=== PATIENT | male | born 1985 | race Two or more races ===

== ENCOUNTER 2017-09-10 16:09 | Emergency (ER) | payer MEDICAID ==
[~2017-09-10] VITALS: Ht 162.6 cm; Wt 59.0 kg
[2017-09-10 16:31] VITALS: BP 128/89
== END 2017-09-10 16:55 | disposition left against medical advice (07) ==
LOC: EDBD 16:09 → ER 16:19
DX: R04.0 Epistaxis (principal); Z53.21 Procedure and treatment not carried out due to patient leaving prior to being seen by health care provider

== ENCOUNTER 2017-11-02 15:52 | Emergency (ER) | payer MEDICAID ==
[~2017-11-02] VITALS: Ht 175.3 cm; Wt 81.6 kg
[2017-11-02] MEDS ORDERED: SODIUM CHLORIDE 0.9% 1,000 ML IV ONE (16:03)
[2017-11-02 20:00] VITALS: BP 133/87
== END 2017-11-02 20:06 | disposition home or self-care (01) ==
LOC: ER 15:52 → EDBD 15:52 → ER 20:06
DX: S09.90XA Unspecified injury of head, initial encounter (principal); F10.129 Alcohol abuse with intoxication, unspecified; Z87.442 Personal history of urinary calculi
CPT/HCPCS: 36415; 70450; 80320; 94761

== ENCOUNTER 2017-11-21 19:30 | Emergency (ER) | payer MEDICAID ==
[~2017-11-21] VITALS: Ht 175.3 cm; Wt 68.0 kg
[2017-11-22 00:02] VITALS: BP 141/94
== END 2017-11-22 06:03 | disposition left against medical advice (07) ==
LOC: ER 19:30 → EDBD 19:30 → ER 11-22 06:03
DX: R56.9 Unspecified convulsions (principal); Z53.21 Procedure and treatment not carried out due to patient leaving prior to being seen by health care provider

== ENCOUNTER 2017-12-16 17:18 | Emergency (ER) | payer MEDICAID ==
[~2017-12-16] VITALS: Ht 170.2 cm; Wt 65.8 kg
[2017-12-16 17:45] VITALS: BP 137/88
== END 2017-12-16 22:00 | disposition left against medical advice (07) ==
LOC: ER 17:18 → EDBD 17:18 → ER 22:00
DX: F10.129 Alcohol abuse with intoxication, unspecified (principal); Z53.21 Procedure and treatment not carried out due to patient leaving prior to being seen by health care provider

== ENCOUNTER 2017-12-20 22:02 | Emergency (ER) | payer MEDICAID ==
[~2017-12-20] VITALS: Ht 162.6 cm; Wt 72.6 kg
[2017-12-20 22:27] VITALS: BP 141/71
[2017-12-21] MEDS ORDERED: FLUCONAZOLE 100 MG TAB PO ONE (03:30)
[2017-12-21] MEDS ORDERED: cefTRIAXone SOD 1,000 MG VL IM ONE (03:30)
== END 2017-12-21 04:20 | disposition home or self-care (01) ==
LOC: ER 22:02
DX: H66.92 Otitis media, unspecified, left ear (principal); Z87.891 Personal history of nicotine dependence; Z87.442 Personal history of urinary calculi
CPT/HCPCS: 96372; 99283; J0696

== ENCOUNTER 2018-01-21 18:54 | Emergency (ER) | payer MEDICAID ==
[~2018-01-21] VITALS: Ht 160 cm; Wt 63.5 kg
[2018-01-21] MEDS ORDERED: SODIUM CHLORIDE 0.9% 1,000 ML IVB ONE (19:02)
[2018-01-21 19:41] LABS: Basophils # (auto) 0.1 uL; Eosinophils # (auto) 0.1 uL; Hematocrit 38.8 % (41.0-53.0); Hemoglobin 12.9 g/dL (13.5-17.5); Lymphocytes # (auto) 1.7 uL; Lymphocytes % (auto) 23.8 % (10.0-50.0); Mean Corpuscular Hemoglobin 32.9 pg (28.0-32.0); Mean Corpuscular Hgb Conc. 33.1 g/dL (32.0-36.0); Mean Corpuscular Volume 99.2 fL (80.0-100.0); Monocytes # (auto) 0.7 uL; Monocytes % (auto) 10.1 % (0.0-12.0); Neutrophils # (auto) 4.6 uL; Neutrophils % (auto) 64.1 % (37.0-80.0); Nucleated Red Blood Cells % 0.1 %; Platelet Count (auto) 380 10^3/uL (140-450); Red Blood Cells 3.91 10^6/uL (4.5-5.90); Red Cell Distribution Width 14.6 % (11.8-14.3); White Blood Cell 7.2 10^3/uL (4.4-10.8)
[2018-01-21 19:58] LABS: BUN/Creatinine Ratio 6.8; Calcium 8.3 mg/dL (8.5-10.1); Magnesium 2.3 mg/dL (1.6-2.6); Potassium 3.9 mmol/L (3.5-5.1)
[2018-01-21 20:05] LABS: Bilirubin, Total 0.2 mg/dL (0.2-1.0); Total Protein 8.6 g/dL (6.4-8.2)
[2018-01-21 22:00] VITALS: BP 154/87
== END 2018-01-22 00:06 | disposition home or self-care (01) ==
LOC: EDUNIT# 18:54 → ER 18:54 → EDBD 18:54 → ER 01-22 00:06
DX: F10.129 Alcohol abuse with intoxication, unspecified (principal); M79.641 Pain in right hand; Z87.442 Personal history of urinary calculi; Z87.891 Personal history of nicotine dependence; Y90.8 Blood alcohol level of 240 mg/100 ml or more
CPT/HCPCS: 36415; 73130; 80053; 80320; 83735; 85025; 94761; 96360; 99285; J7030

== ENCOUNTER 2018-02-04 06:15 | Emergency (ER) | payer MEDICAID ==
[~2018-02-04] VITALS: Ht 162.6 cm; Wt 68.0 kg
[2018-02-04 07:24] LABS: Basophils # (auto) 0 uL; Basophils % (auto) 0.8 % (0.0-2.0); Eosinophils # (auto) 0.1 uL; Eosinophils % (auto) 1.3 % (0.0-7.0); Hematocrit 41.3 % (41.0-53.0); Hemoglobin 13.7 g/dL (13.5-17.5); Lymphocytes # (auto) 1.5 uL; Lymphocytes % (auto) 27.1 % (10.0-50.0); Mean Corpuscular Hemoglobin 32.4 pg (28.0-32.0); Mean Corpuscular Hgb Conc. 33.2 g/dL (32.0-36.0); Mean Corpuscular Volume 97.6 fL (80.0-100.0); Monocytes # (auto) 0.4 uL; Neutrophils # (auto) 3.6 uL; Neutrophils % (auto) 63.8 % (37.0-80.0); Nucleated Red Blood Cells % 0.1 %; Platelet Count (auto) 183 10^3/uL (140-450); Red Blood Cells 4.23 10^6/uL (4.5-5.90); White Blood Cell 5.7 10^3/uL (4.4-10.8)
[2018-02-04 07:42] LABS: Albumin 4.3 g/dL (3.4-5.0); BUN/Creatinine Ratio 9.3; Bilirubin, Total 0.1 mg/dL (0.2-1.0); Calcium 8.4 mg/dL (8.5-10.1); Potassium 3.8 mmol/L (3.5-5.1); Total Protein 9.1 g/dL (6.4-8.2)
[2018-02-04] MEDS ORDERED: LORazepam 2MG/ML-1ML VIAL ONE (08:11)
[2018-02-04] MEDS ORDERED: LORazepam 2MG/ML-1ML VIAL IV ONE (08:15)
[2018-02-04] MEDS ORDERED: SODIUM CHLORIDE 0.9% 1,000 ML IV ONE (08:15)
[2018-02-04 10:31] LABS: Urine WBC None Seen /hpf (0 - 3)
[2018-02-04 10:39] LABS: Urine Bacteria NONE SEEN /hpf (None Seen); Urine Blood Negative /uL (Negative); Urine Hyaline Cast FEW /lpf (0 - 2); Urine Specific Gravity 1.008 (1.001-1.035)
[2018-02-04 11:08] LABS: Amphetamine Screen, Urine NEGATIVE (NEGATIVE); Barbiturate Scree,Urine NEGATIVE (NEGATIVE); Benzodiazephine Screen, Urine POSITIVE (NEGATIVE); Cannabinoid Screen, Urine NEGATIVE (NEGATIVE); Cocaine Screen, Urine NEGATIVE (NEGATIVE); Opiate Scree,Urine NEGATIVE (NEGATIVE); Phencyclidine Screen, Urine NEGATIVE (NEGATIVE)
[2018-02-04 12:38] VITALS: BP 108/76
== END 2018-02-04 14:06 | disposition home or self-care (01) ==
LOC: EDBD 06:15 → ER 06:18
DX: F10.129 Alcohol abuse with intoxication, unspecified (principal); Z87.442 Personal history of urinary calculi
CPT/HCPCS: 36415; 70450; 80053; 80307; 80320; 81001; 85025; 94761; 96361; 96374; 99285; J2060

== ENCOUNTER 2018-02-14 23:02 | Emergency (ER) | payer MEDICAID ==
[~2018-02-14] VITALS: Ht 162.6 cm; Wt 79.8 kg
[2018-02-14 23:08] VITALS: BP 159/84
[2018-02-14] MEDS ORDERED: THIAMINE INJ 100 MG, MULTIPLE VITAMIN 10 ML, FOLIC ACID 1 MG, MAGNESIUM SULF SDV 50% 8 ... IV STA ×5 (23:32)
[2018-02-14 23:40] LABS: Basophils # (auto) 0 uL; Basophils % (auto) 1.1 % (0.0-2.0); Eosinophils # (auto) 0.1 uL; Eosinophils % (auto) 1.6 % (0.0-7.0); Hematocrit 42.5 % (41.0-53.0); Lymphocytes # (auto) 1.5 uL; Lymphocytes % (auto) 39.7 % (10.0-50.0); Mean Corpuscular Hemoglobin 31.9 pg (28.0-32.0); Mean Corpuscular Volume 96.8 fL (80.0-100.0); Monocytes # (auto) 0.3 uL; Monocytes % (auto) 7.6 % (0.0-12.0); Neutrophils # (auto) 1.9 uL; Nucleated Red Blood Cells % 0.1 %; Platelet Count (auto) 189 10^3/uL (140-450); Red Blood Cells 4.39 10^6/uL (4.5-5.90); Red Cell Distribution Width 14.8 % (11.8-14.3); White Blood Cell 3.8 10^3/uL (4.4-10.8)
[2018-02-14 23:55] LABS: INR 0.9 (0.9-1.15); Partial Thromboplastin Time 27.6 sec (22.64-33.71); Prothrombin Time 9.8 sec (9.37-12.3)
[2018-02-14 23:56] LABS: Albumin 4.3 g/dL (3.4-5.0); BUN/Creatinine Ratio 12.3; Calcium 8.9 mg/dL (8.5-10.1); Potassium 4.1 mmol/L (3.5-5.1)
[2018-02-14 23:59] LABS: Bilirubin, Total 0.2 mg/dL (0.2-1.0)
== END 2018-02-15 00:30 | disposition left against medical advice (07) ==
LOC: EDBD 23:02 → ER 23:02
DX: R10.12 Left upper quadrant pain (principal); Z53.21 Procedure and treatment not carried out due to patient leaving prior to being seen by health care provider
CPT/HCPCS: 36415; 71045; 74176; 80053; 80320; 82150; 83690; 85025; 85610; 85730

== ENCOUNTER 2018-02-15 01:50 | Emergency (ER) | payer MEDICAID ==
[~2018-02-15] VITALS: Ht 175.3 cm; Wt 83.9 kg
[2018-02-15] MEDS ORDERED: SODIUM CHLORIDE 0.9% 1,000 ML IVB ONE (02:04)
[2018-02-15 02:39] LABS: Basophils # (auto) 0 uL; Basophils % (auto) 1.1 % (0.0-2.0); Eosinophils # (auto) 0 uL; Eosinophils % (auto) 0.9 % (0.0-7.0); Hematocrit 41.7 % (41.0-53.0); Lymphocytes # (auto) 2.3 uL; Lymphocytes % (auto) 50.7 % (10.0-50.0); Mean Corpuscular Hemoglobin 32.6 pg (28.0-32.0); Mean Corpuscular Hgb Conc. 33.7 g/dL (32.0-36.0); Mean Corpuscular Volume 96.8 fL (80.0-100.0); Monocytes # (auto) 0.4 uL; Monocytes % (auto) 8.5 % (0.0-12.0); Neutrophils # (auto) 1.8 uL; Neutrophils % (auto) 38.8 % (37.0-80.0); Nucleated Red Blood Cells % 0.1 %; Platelet Count (auto) 184 10^3/uL (140-450); Red Blood Cells 4.31 10^6/uL (4.5-5.90); Red Cell Distribution Width 14.9 % (11.8-14.3); White Blood Cell 4.6 10^3/uL (4.4-10.8)
[2018-02-15 02:55] LABS: Albumin 3.6 g/dL (3.4-5.0); Calcium 7.9 mg/dL (8.5-10.1); Magnesium 1.9 mg/dL (1.6-2.6); Potassium 3.6 mmol/L (3.5-5.1)
[2018-02-15 02:57] LABS: Acetaminophen < 2.0 ug/mL (10-30); Salicylate 1.8 mg/dL (2.8-20.0)
[2018-02-15 02:59] LABS: Bilirubin, Total 0.2 mg/dL (0.2-1.0); Total Protein 7.7 g/dL (6.4-8.2)
[2018-02-15 03:20] LABS: Urine Bacteria NONE SEEN /hpf (None Seen); Urine Blood Negative /uL (Negative); Urine Hyaline Cast FEW /lpf (0 - 2); Urine Specific Gravity 1.007 (1.001-1.035); Urine WBC 2 /hpf (0 - 3)
[2018-02-15 03:34] LABS: Amphetamine Screen, Urine NEGATIVE (NEGATIVE); Barbiturate Scree,Urine NEGATIVE (NEGATIVE); Benzodiazephine Screen, Urine POSITIVE (NEGATIVE); Cannabinoid Screen, Urine NEGATIVE (NEGATIVE); Opiate Scree,Urine NEGATIVE (NEGATIVE); Phencyclidine Screen, Urine NEGATIVE (NEGATIVE)
[2018-02-15 03:43] LABS: Cocaine Screen, Urine NEGATIVE (NEGATIVE)
[2018-02-15 09:47] VITALS: BP 102/63
[2018-02-15] MEDS ORDERED: THIAMINE INJ 100 MG, MULTIPLE VITAMIN 10 ML, FOLIC ACID 1 MG, MAGNESIUM SULF SDV 50% 8 ... IV SCH ×5 (12:00)
== END 2018-02-15 05:35 | disposition home or self-care (01) ==
LOC: ER 01:50
DX: F10.129 Alcohol abuse with intoxication, unspecified (principal); G92 Toxic encephalopathy; R41.82 Altered mental status, unspecified; F41.9 Anxiety disorder, unspecified; Z87.891 Personal history of nicotine dependence; Z87.442 Personal history of urinary calculi
CPT/HCPCS: 36415; 70450; 80053; 80307; 80320; 80329; 81001; 83735; 85025; 96361; 96365; 96366; 99285; J3411; J3475; J7030

== ENCOUNTER 2018-04-21 13:31 | Emergency (ER) | payer MEDICAID ==
[~2018-04-21] VITALS: Ht 167.6 cm; Wt 77.1 kg
[2018-04-21 14:43] LABS: Basophils # (auto) 0 uL; Basophils % (auto) 0.9 % (0.0-2.0); Eosinophils # (auto) 0 uL; Eosinophils % (auto) 0.4 % (0.0-7.0); Hematocrit 38.2 % (41.0-53.0); Hemoglobin 12.8 g/dL (13.5-17.5); Lymphocytes # (auto) 0.5 uL; Lymphocytes % (auto) 9.7 % (10.0-50.0); Mean Corpuscular Hemoglobin 32.2 pg (28.0-32.0); Mean Corpuscular Hgb Conc. 33.4 g/dL (32.0-36.0); Mean Corpuscular Volume 96.3 fL (80.0-100.0); Monocytes # (auto) 0.4 uL; Monocytes % (auto) 9.5 % (0.0-12.0); Neutrophils # (auto) 3.7 uL; Neutrophils % (auto) 79.5 % (37.0-80.0); Platelet Count (auto) 68 10^3/uL (140-450); Red Blood Cells 3.97 10^6/uL (4.5-5.90); Red Cell Distribution Width 16.2 % (11.8-14.3); White Blood Cell 4.7 10^3/uL (4.4-10.8)
[2018-04-21 14:59] LABS: Alanine Aminotransferase 51 U/L (16-61); Albumin 3.9 g/dL (3.4-5.0); Anion Gap 11 (5-15); Aspartate Aminotransferase 67 U/L (15-37); BUN/Creatinine Ratio 6.3; Blood Alcohol < 3.0 mg/dL (0-5); Blood Urea Nitrogen 4 mg/dL (7-18); Calcium 9.6 mg/dL (8.5-10.1); Carbon Dioxide 26 mmol/L (21-32); Chloride 100 mmol/L (98-107); GFR African American 189 mL/min; GFR Non-African American 156 mL/min; Glucose 142 mg/dL (74-106); Potassium 3.6 mmol/L (3.5-5.1); Sodium 137 mmol/L (136-145)
[2018-04-21 15:02] LABS: Alkaline Phosphatase 175 U/L (45-117); Bilirubin, Total 0.7 mg/dL (0.2-1.0); Total Protein 8.7 g/dL (6.4-8.2)
[2018-04-21] MEDS ORDERED: SODIUM CHLORIDE 0.9% 1,000 ML IVB ONE (15:46)
[2018-04-21] MEDS ORDERED: PHENYTOIN IV DILANTIN 1,000 MG in SODIUM CHL 0.9% 250 ML IV ONE (16:00)
[2018-04-21] MEDS ORDERED: LORazepam 2MG/ML-1ML VIAL IV ONE (16:15)
[2018-04-21] MEDS ORDERED: MVI in SODIUM CHLORIDE 0.9% 1,010 ML ONE (16:47)
[2018-04-21] MEDS ORDERED: THIAMINE 100mg/ml INJ (200mg/2ml VIAL) ONE (16:47)
[2018-04-21 16:56] LABS: INR 0.87 (0.9-1.15); Prothrombin Time 9.4 sec (9.27-12.13)
[2018-04-21 18:46] LABS: Alcohol, Urine < 3.0 mg/dL (0-5); Amphetamine Screen, Urine NEGATIVE (NEGATIVE); Barbiturate Scree,Urine NEGATIVE (NEGATIVE); Benzodiazephine Screen, Urine NEGATIVE (NEGATIVE); Cannabinoid Screen, Urine NEGATIVE (NEGATIVE); Cocaine Screen, Urine NEGATIVE (NEGATIVE); Opiate Scree,Urine NEGATIVE (NEGATIVE); Phencyclidine Screen, Urine NEGATIVE (NEGATIVE)
[2018-04-21 19:25] LABS: Urine Bacteria NONE SEEN /hpf (None Seen); Urine Blood Negative /uL (Negative); Urine Mucus FEW (None Seen); Urine Specific Gravity 1.011 (1.001-1.035); Urine WBC <1 /hpf (0 - 3)
[2018-04-21 20:15] VITALS: BP 130/82
[2018-04-22] MEDS ORDERED: THIAMINE INJ 100 MG, MULTIPLE VITAMIN 10 ML, FOLIC ACID 1 MG, MAGNESIUM SULF SDV 50% 8 ... IV SCH ×5 (12:00)
== END 2018-04-21 20:16 | disposition home or self-care (01) ==
LOC: EDBD 13:31 → ER 13:34
DX: G40.909 Epilepsy, unspecified, not intractable, without status epilepticus (principal); F10.10 Alcohol abuse, uncomplicated; R41.82 Altered mental status, unspecified; R42 Dizziness and giddiness
CPT/HCPCS: 36415; 70450; 71045; 80053; 80307; 80320; 81001; 83735; 85025; 85610; 85730; 93005; 94761; 96365; 96368; 99285; J1165; J2060; J3411; J3475; J7030; J7050

== ENCOUNTER 2018-05-08 20:57 | Emergency (ER) | payer MEDICAID ==
[~2018-05-08] VITALS: Ht 177.8 cm; Wt 86.2 kg
[2018-05-08 21:08] VITALS: BP 132/82
[2018-05-09] MEDS ORDERED: THIAMINE INJ 100 MG, MULTIPLE VITAMIN 10 ML, FOLIC ACID 1 MG, MAGNESIUM SULF SDV 50% 8 ... IV SCH ×5 (12:00)
== END 2018-05-08 23:49 | disposition left against medical advice (07) ==
LOC: EDBD 20:57 → ER 21:00
DX: R07.9 Chest pain, unspecified (principal); Z53.21 Procedure and treatment not carried out due to patient leaving prior to being seen by health care provider

== ENCOUNTER 2018-07-12 22:49 | Emergency (ER) | payer MEDICAID ==
[~2018-07-12] VITALS: Ht 162.6 cm; Wt 59.0 kg
[2018-07-12 23:00] VITALS: BP 140/98
== END 2018-07-13 09:24 | disposition home or self-care (01) ==
LOC: EDBD 22:49 → ER 22:58
DX: F10.10 Alcohol abuse, uncomplicated (principal); Z87.891 Personal history of nicotine dependence; Z53.29 Procedure and treatment not carried out because of patient's decision for other reasons

== ENCOUNTER 2018-09-06 16:46 | Emergency (ER) | payer MEDICAID ==
[~2018-09-06] VITALS: Ht 165.1 cm; Wt 68.0 kg
[2018-09-06] MEDS ORDERED: SODIUM CHLORIDE 0.9% 1,000 ML IVB ONE (16:51)
[2018-09-06] MEDS ORDERED: LORazepam 2MG/ML-1ML VIAL IV ONE (17:00)
[2018-09-06 17:20] VITALS: BP 150/80
[2018-09-06 18:01] LABS: Basophils # (auto) 0 uL; Eosinophils # (auto) 0 uL; Eosinophils % (auto) 0.3 % (0.0-7.0); Hematocrit 38.3 % (41.0-53.0); Hemoglobin 12.4 g/dL (13.5-17.5); Lymphocytes # (auto) 1.2 uL; Lymphocytes % (auto) 28.2 % (10.0-50.0); Mean Corpuscular Hemoglobin 31.3 pg (28.0-32.0); Mean Corpuscular Hgb Conc. 32.3 g/dL (32.0-36.0); Mean Corpuscular Volume 96.8 fL (80.0-100.0); Monocytes # (auto) 0.3 uL; Monocytes % (auto) 7.7 % (0.0-12.0); Neutrophils # (auto) 2.6 uL; Neutrophils % (auto) 62.8 % (37.0-80.0); Platelet Count (auto) 105 10^3/uL (140-450); Red Blood Cells 3.96 10^6/uL (4.5-5.90); Red Cell Distribution Width 16.7 % (11.8-14.3); White Blood Cell 4.1 10^3/uL (4.4-10.8)
[2018-09-06 18:29] LABS: Alanine Aminotransferase 28 U/L (16-61); Albumin 3.7 g/dL (3.4-5.0); Anion Gap 21 (5-15); Aspartate Aminotransferase 51 U/L (15-37); BUN/Creatinine Ratio 4.9; Blood Urea Nitrogen 4 mg/dL (7-18); Calcium 8.2 mg/dL (8.5-10.1); Carbon Dioxide 17 mmol/L (21-32); Chloride 103 mmol/L (98-107); GFR African American 143 mL/min; GFR Non-African American 118 mL/min; Glucose 88 mg/dL (74-106); Potassium 3.4 mmol/L (3.5-5.1); Sodium 141 mmol/L (136-145)
[2018-09-06 18:31] LABS: Alkaline Phosphatase 158 U/L (45-117); Bilirubin, Total 0.4 mg/dL (0.2-1.0); Total Protein 8.5 g/dL (6.4-8.2)
== END 2018-09-06 18:52 | disposition home or self-care (01) ==
LOC: EDBD 16:46 → ER 16:46 → EDUNIT# 16:46 → ER 18:52
DX: F10.120 Alcohol abuse with intoxication, uncomplicated (principal); F15.10 Other stimulant abuse, uncomplicated
CPT/HCPCS: 36415; 80053; 80320; 85025; 94761; 96374; 99284; J2060; J7030

== ENCOUNTER 2018-09-20 11:01 | Emergency (ER) | payer MEDICAID ==
[~2018-09-20] VITALS: Ht 167.6 cm; Wt 81.6 kg
[2018-09-20] MEDS ORDERED: LORazepam 2MG/ML-1ML VIAL IV ONE (11:45)
[2018-09-20 12:05] LABS: Basophils # (auto) 0.1 uL; Basophils % (auto) 1.2 % (0.0-2.0); Eosinophils # (auto) 0 uL; Eosinophils % (auto) 0.4 % (0.0-7.0); Hematocrit 39.6 % (41.0-53.0); Hemoglobin 13.1 g/dL (13.5-17.5); Lymphocytes # (auto) 0.7 uL; Lymphocytes % (auto) 14.3 % (10.0-50.0); Mean Corpuscular Hemoglobin 31.2 pg (28.0-32.0); Mean Corpuscular Hgb Conc. 33.1 g/dL (32.0-36.0); Mean Corpuscular Volume 94.2 fL (80.0-100.0); Monocytes # (auto) 0.3 uL; Monocytes % (auto) 5.4 % (0.0-12.0); Neutrophils # (auto) 3.9 uL; Neutrophils % (auto) 78.7 % (37.0-80.0); Platelet Count (auto) 155 10^3/uL (140-450); Red Blood Cells 4.21 10^6/uL (4.5-5.90); Red Cell Distribution Width 17.3 % (11.8-14.3); White Blood Cell 4.9 10^3/uL (4.4-10.8)
[2018-09-20 12:25] LABS: Albumin 4.1 g/dL (3.4-5.0); Anion Gap 11 (5-15); Blood Urea Nitrogen 6 mg/dL (7-18); Calcium 9.4 mg/dL (8.5-10.1); Carbon Dioxide 26 mmol/L (21-32); Chloride 101 mmol/L (98-107); Glucose 135 mg/dL (74-106); Potassium 4.1 mmol/L (3.5-5.1); Sodium 138 mmol/L (136-145)
[2018-09-20 12:30] LABS: Alanine Aminotransferase 35 U/L (16-61); Alkaline Phosphatase 140 U/L (45-117); Aspartate Aminotransferase 64 U/L (15-37); BUN/Creatinine Ratio 8.1; Bilirubin, Total 0.8 mg/dL (0.2-1.0); Blood Alcohol < 3.0 mg/dL (0-5); GFR African American 159 mL/min; GFR Non-African American 131 mL/min; Total Protein 8.7 g/dL (6.4-8.2)
[2018-09-20] MEDS ORDERED: THIAMINE INJ 100 MG, MULTIPLE VITAMIN 10 ML, FOLIC ACID 1 MG, MAGNESIUM SULF SDV 50% 8 ... IV ONE ×5 (12:30)
[2018-09-20 15:49] VITALS: BP 167/67
== END 2018-09-20 15:49 | disposition home or self-care (01) ==
LOC: EDBD 11:01 → ER 11:01
DX: F10.239 Alcohol dependence with withdrawal, unspecified (principal); F15.10 Other stimulant abuse, uncomplicated; Z87.891 Personal history of nicotine dependence
CPT/HCPCS: 36415; 80053; 80320; 85025; 94761; 96365; 96366; 96375; 99284; J2060; J3411; J3475; J7030

== ENCOUNTER 2019-02-24 21:42 | Emergency (ER) | payer MEDICAID ==
[~2019-02-24] VITALS: Ht 162.6 cm; Wt 63.5 kg
[2019-02-24 23:10] LABS: Urine WBC None Seen /hpf (0 - 3)
[2019-02-24 23:32] LABS: Amphetamine Screen, Urine NEGATIVE (NEGATIVE); Barbiturate Scree,Urine NEGATIVE (NEGATIVE); Cannabinoid Screen, Urine NEGATIVE (NEGATIVE); Cocaine Screen, Urine NEGATIVE (NEGATIVE); Opiate Scree,Urine NEGATIVE (NEGATIVE); Phencyclidine Screen, Urine NEGATIVE (NEGATIVE)
[2019-02-24 23:41] LABS: Benzodiazephine Screen, Urine NEGATIVE (NEGATIVE); Urine Bacteria NONE SEEN /hpf (None Seen); Urine Blood Negative /uL (Negative); Urine Specific Gravity 1.003 (1.001-1.035)
[2019-02-25 02:32] LABS: Basophils # (auto) 0.1 uL; Basophils % (auto) 1.5 % (0.0-2.0); Eosinophils # (auto) 0.1 uL; Eosinophils % (auto) 1.1 % (0.0-7.0); Hematocrit 38.9 % (41.0-53.0); Hemoglobin 13.4 g/dL (13.5-17.5); Lymphocytes # (auto) 1.6 uL; Lymphocytes % (auto) 34.3 % (10.0-50.0); Mean Corpuscular Hgb Conc. 34.3 g/dL (32.0-36.0); Mean Corpuscular Volume 96.1 fL (80.0-100.0); Monocytes # (auto) 0.4 uL; Monocytes % (auto) 9.5 % (0.0-12.0); Neutrophils # (auto) 2.5 uL; Neutrophils % (auto) 53.6 % (37.0-80.0); Platelet Count (auto) 161 10^3/uL (140-450); Red Blood Cells 4.05 10^6/uL (4.5-5.90); Red Cell Distribution Width 17.1 % (11.8-14.3); White Blood Cell 4.6 10^3/uL (4.4-10.8)
[2019-02-25 02:44] LABS: INR 0.87 (0.9-1.15); Prothrombin Time 9.4 sec (9.27-12.13)
[2019-02-25] MEDS ORDERED: KETOROLAC TROMETH 60MG/2ML VIAL IM ONE (02:45)
[2019-02-25 02:54] LABS: Alanine Aminotransferase 40 U/L (16-61); Anion Gap 9 (5-15); Aspartate Aminotransferase 42 U/L (15-37); BUN/Creatinine Ratio 8.8; Blood Urea Nitrogen 6 mg/dL (7-18); Calcium 8.6 mg/dL (8.5-10.1); Carbon Dioxide 21 mmol/L (21-32); Chloride 110 mmol/L (98-107); GFR African American 175 mL/min; GFR Non-African American 145 mL/min; Glucose 93 mg/dL (74-106); Potassium 4.4 mmol/L (3.5-5.1); Sodium 140 mmol/L (136-145)
[2019-02-25 02:57] LABS: Alkaline Phosphatase 169 U/L (45-117); Bilirubin, Total 0.3 mg/dL (0.2-1.0); Total Protein 8.6 g/dL (6.4-8.2)
[2019-02-25] MEDS ORDERED: IOHEXOL 350 MG/ML 100ML IJ ONE (03:56)
[2019-02-25 05:00] VITALS: BP 124/69
== END 2019-02-25 05:46 | disposition home or self-care (01) ==
LOC: EDBD 21:42 → ER 21:45
DX: R07.89 Other chest pain (principal); S22.069A Unspecified fracture of T7-T8 vertebra, initial encounter for closed fracture; F15.10 Other stimulant abuse, uncomplicated; Z87.891 Personal history of nicotine dependence; X58.XXXA Exposure to other specified factors, initial encounter; Y93.89 Activity, other specified; Y92.89 Other specified places as the place of occurrence of the external cause; Y99.8 Other external cause status
CPT/HCPCS: 36415; 71045; 71275; 80053; 80307; 80320; 81001; 83880; 84484; 85025; 85379; 85610; 93005; 96372; 99284; J1885; Q9967

== ENCOUNTER 2019-09-03 18:09 | Emergency (ER) | payer MEDICAID ==
[~2019-09-03] VITALS: Ht 167.6 cm; Wt 68.0 kg
[2019-09-03] MEDS ORDERED: SODIUM CHLORIDE 0.9% 2,000 ML IV ONE ×2 (18:30→20:30)
[2019-09-03 21:00] VITALS: BP 119/69
== END 2019-09-03 21:05 | disposition home or self-care (01) ==
LOC: EDBD 18:09 → ER 18:09
DX: F10.229 Alcohol dependence with intoxication, unspecified (principal); F15.90 Other stimulant use, unspecified, uncomplicated
CPT/HCPCS: 36415; 80320

== ENCOUNTER 2020-01-03 22:06 | Emergency (ER) | payer MEDICAID ==
[~2020-01-03] VITALS: Ht 165.1 cm; Wt 74.8 kg
[2020-01-04] MEDS ORDERED: THIAMINE INJ 100 MG in SODIUM CHLORIDE 0.9% 1,000 ML IV ONE (00:15)
[2020-01-04] MEDS ORDERED: SODIUM CHLORIDE 0.9% 1,000 ML IV ONE ×3 (00:15→03:30)
[2020-01-04] MEDS ORDERED: LEVETIRACETAM INJ 1,000 MG in D5W 5% 100 ML IV ONE (00:15)
[2020-01-04] MEDS ORDERED: LEVETIRACETAM 500 MG/5ML INJ IV ONE (00:26)
[2020-01-04 00:49] LABS: Eosinophils # (auto) 0 uL; Eosinophils % (auto) 0.8 % (0.0-7.0); Hemoglobin 13.5 g/dL (13.5-17.5); Monocytes # (auto) 0.4 uL
[2020-01-04 00:52] LABS: Basophils # (auto) 0.1 uL; Basophils % (auto) 1.1 % (0.0-2.0); Hematocrit 39.8 % (41.0-53.0); Lymphocytes # (auto) 1.6 uL; Lymphocytes % (auto) 29.2 % (10.0-50.0); Mean Corpuscular Hemoglobin 34.5 pg (28.0-32.0); Mean Corpuscular Volume 101.5 fL (80.0-100.0); Monocytes % (auto) 7.9 % (0.0-12.0); Neutrophils # (auto) 3.3 uL; Nucleated Red Blood Cells % 0.1 %; Red Blood Cells 3.92 10^6/uL (4.5-5.90); White Blood Cell 5.3 10^3/uL (4.4-10.8)
[2020-01-04 01:09] LABS: Albumin 3.6 g/dL (3.4-5.0); BUN/Creatinine Ratio 6.7; Calcium 7.8 mg/dL (8.5-10.1); Magnesium 2.2 mg/dL (1.6-2.6); Potassium 3.9 mmol/L (3.5-5.1)
[2020-01-04 01:10] LABS: Salicylate < 1.7 mg/dL (2.8-20.0)
[2020-01-04 01:11] LABS: Amphetamine Screen, Urine NEGATIVE (NEGATIVE); Barbiturate Scree,Urine NEGATIVE (NEGATIVE); Benzodiazephine Screen, Urine NEGATIVE (NEGATIVE); Cannabinoid Screen, Urine NEGATIVE (NEGATIVE); Cocaine Screen, Urine NEGATIVE (NEGATIVE); Opiate Scree,Urine NEGATIVE (NEGATIVE)
[2020-01-04 01:12] LABS: Bilirubin, Total 0.3 mg/dL (0.2-1.0); Total Protein 8.2 g/dL (6.4-8.2)
[2020-01-04 01:19] LABS: Phencyclidine Screen, Urine NEGATIVE (NEGATIVE)
[2020-01-04 01:19] LABS: Acetaminophen < 2.0 ug/mL (10-30)
[2020-01-04 01:25] LABS: Platelet Count (auto) 44 10^3/uL (140-450)
[2020-01-04 05:13] VITALS: BP 100/65
[2020-01-05] MEDS ORDERED: LIDOCAINE 2%HCL (LOCAL ANESTH.) INJ 20ML MDV ONE (14:50)
== END 2020-01-04 05:30 | disposition home or self-care (01) ==
LOC: ER 22:06 → EDBD 22:06 → ER 01-04 05:30
DX: G40.409 Other generalized epilepsy and epileptic syndromes, not intractable, without status epilepticus (principal); F10.129 Alcohol abuse with intoxication, unspecified; Y90.9 Presence of alcohol in blood, level not specified
CPT/HCPCS: 36415; 70450; 72125; 80053; 80307; 80320; 80329; 83735; 85025; 96365; 96367; 99285; J1953; J3411; J7030; J7060

== ENCOUNTER → 2020-01-18 | Emergency (ER) | payer MEDICAID ==
[~2020-01-18] VITALS: Ht 165.1 cm; Wt 65.8 kg
[~2020-01-18] MED LIST: LORazepam 2MG/ML-1ML VIAL IV ONE; SODIUM CHLORIDE 0.9% 1,000 ML IVB ONE
[2020-01-18 12:48] VITALS: BP 106/65
== END | disposition left against medical advice (07) ==
LOC: EDUNIT# 12:31 → ER 12:36 → EDBD 12:36
DX: G40.909 Epilepsy, unspecified, not intractable, without status epilepticus (principal); F10.10 Alcohol abuse, uncomplicated; F15.10 Other stimulant abuse, uncomplicated; Z87.891 Personal history of nicotine dependence

== ENCOUNTER 2020-02-04 20:12 | Emergency (ER) | payer MEDICAID ==
[~2020-02-04] VITALS: Ht 162.6 cm; Wt 68.3 kg
[2020-02-04 21:31] LABS: Eosinophils # (auto) 0 10 ^3/uL (0-0.8); Lymphocytes # (auto) 1.8 10 ^3/uL (0.4-5.4); Mean Corpuscular Volume 101.5 fL (80.0-100.0); Monocytes # (auto) 0.3 10 ^3/uL (0-1.3); Neutrophils # (auto) 2.3 10 ^3/uL (1.6-8.6)
[2020-02-04 21:33] LABS: Basophils # (auto) 0.1 10 ^3/uL (0-0.2); Basophils % (auto) 1.2 % (0.0-2.0); Eosinophils % (auto) 1.1 % (0.0-7.0); Hematocrit 41.2 % (41.0-53.0); Hemoglobin 14.1 g/dL (13.5-17.5); Lymphocytes % (auto) 39.8 % (10.0-50.0); Mean Corpuscular Hemoglobin 34.8 pg (28.0-32.0); Mean Corpuscular Hgb Conc. 34.3 g/dL (32.0-36.0); Monocytes % (auto) 5.7 % (0.0-12.0); Neutrophils % (auto) 52.2 % (37.0-80.0); Platelet Count (auto) 85 10^3/uL (140-450); Red Blood Cells 4.06 10^6/uL (4.5-5.90); Red Cell Distribution Width 14.2 % (11.8-14.3); White Blood Cell 4.4 10^3/uL (4.4-10.8)
[2020-02-04 22:21] LABS: Calcium 8.4 mg/dL (8.5-10.1); Potassium 4.1 mmol/L (3.5-5.1)
[2020-02-04 22:24] LABS: BUN/Creatinine Ratio 8.3; Bilirubin, Total 0.3 mg/dL (0.2-1.0)
[2020-02-05 08:56] LABS: Urine Bacteria NONE SEEN /hpf (None Seen); Urine Blood Negative /uL (Negative); Urine Mucus FEW (None Seen); Urine Specific Gravity 1.022 (1.001-1.035); Urine WBC 1 /hpf (0 - 3)
[2020-02-05 09:05] VITALS: BP 99/66
== END 2020-02-05 10:45 | disposition home or self-care (01) ==
LOC: ER 20:12
DX: G40.909 Epilepsy, unspecified, not intractable, without status epilepticus (principal); F10.10 Alcohol abuse, uncomplicated; F15.10 Other stimulant abuse, uncomplicated; Z87.891 Personal history of nicotine dependence
CPT/HCPCS: 36415; 70450; 80053; 81001; 82542; 85025

== ENCOUNTER → 2020-03-12 | Emergency (ER) | payer MEDICAID ==
[~2020-03-12] VITALS: Ht 162.6 cm; Wt 60.8 kg
[~2020-03-12] MED LIST changes: -LORazepam 2MG/ML-1ML VIAL IV ONE; +SODIUM CHLORIDE 0.9% 1,000 ML IV ONE; -SODIUM CHLORIDE 0.9% 1,000 ML IVB ONE; +THIAMINE 100mg/ml INJ (200mg/2ml VIAL) IV ONE
[2020-03-12 16:08] LABS: Basophils # (auto) 0.1 10 ^3/uL (0-0.2); Eosinophils # (auto) 0 10 ^3/uL (0-0.8); Hematocrit 43.7 % (41.0-53.0); Hemoglobin 14.9 g/dL (13.5-17.5); Lymphocytes # (auto) 1.4 10 ^3/uL (0.4-5.4); Mean Corpuscular Hemoglobin 34.5 pg (28.0-32.0); Platelet Count (auto) 148 10^3/uL (140-450)
[2020-03-12 16:10] LABS: Basophils % (auto) 1.1 % (0.0-2.0); Eosinophils % (auto) 0.2 % (0.0-7.0); Lymphocytes % (auto) 20.4 % (10.0-50.0); Mean Corpuscular Hgb Conc. 34.1 g/dL (32.0-36.0); Mean Corpuscular Volume 101.1 fL (80.0-100.0); Monocytes # (auto) 0.3 10 ^3/uL (0-1.3); Monocytes % (auto) 3.9 % (0.0-12.0); Neutrophils % (auto) 74.4 % (37.0-80.0); Nucleated Red Blood Cells % 0.2 %; Red Blood Cells 4.32 10^6/uL (4.5-5.90); Red Cell Distribution Width 13.7 % (11.8-14.3); White Blood Cell 6.7 10^3/uL (4.4-10.8)
[2020-03-12 16:21] LABS: Albumin 4.1 g/dL (3.4-5.0); Calcium 8.5 mg/dL (8.5-10.1); Potassium 3.9 mmol/L (3.5-5.1)
[2020-03-12 16:26] LABS: BUN/Creatinine Ratio 8.2; Bilirubin, Total 0.4 mg/dL (0.2-1.0); Total Protein 9.1 g/dL (6.4-8.2)
[2020-03-12 18:21] VITALS: BP 105/69
== END | disposition home or self-care (01) ==
LOC: EDUNIT# 15:20 → EDBD 15:32 → ER 15:41
DX: G40.909 Epilepsy, unspecified, not intractable, without status epilepticus (principal); F10.129 Alcohol abuse with intoxication, unspecified; E86.0 Dehydration; Z87.891 Personal history of nicotine dependence; Y90.8 Blood alcohol level of 240 mg/100 ml or more
CPT/HCPCS: 36415; 71045; 80053; 80320; 85025; 96360; 99284; J7030

== ENCOUNTER 2020-05-13 13:04 | Emergency (ER) | payer MEDICAID ==
[~2020-05-13] VITALS: Ht 160 cm; Wt 65.8 kg
[2020-05-13] MEDS ORDERED: SODIUM CHLORIDE 0.9% 1,000 ML IV ONE (14:40)
[2020-05-13] MEDS ORDERED: cefTRIAXone 1GM/50ML D5W 50 ML IV ONE (14:45)
[2020-05-13] MEDS ORDERED: TETANUS-DIPTH-ACEL PERTUSSIS 0.5ML SYR Tdap IM ONE (14:45)
[2020-05-13 15:00] VITALS: BP 134/105
[2020-05-13] MEDS ORDERED: THIAMINE 100mg/ml INJ (200mg/2ml VIAL) IV ONE (15:00)
[2020-05-13] MEDS ORDERED: LIDOCAINE 1% HCL (LOCAL ANESTH.) INJ 20ML MDV IJ ONE (15:00)
== END 2020-05-13 16:12 | disposition home or self-care (01) ==
LOC: ER 13:04
DX: S61.217A Laceration without foreign body of left little finger without damage to nail, initial encounter (principal); E86.0 Dehydration; F10.10 Alcohol abuse, uncomplicated; Z87.891 Personal history of nicotine dependence; W26.0XXA Contact with knife, initial encounter; Y93.89 Activity, other specified; Y92.89 Other specified places as the place of occurrence of the external cause; Y99.8 Other external cause status
CPT/HCPCS: 96365; 96375; 99284; J0696; J3411; J7030

== ENCOUNTER 2020-05-16 13:56 | Emergency (ER) | payer MEDICAID ==
[~2020-05-16] VITALS: Ht 165.1 cm; Wt 68.0 kg
[2020-05-16 15:37] VITALS: BP 132/93
== END 2020-05-16 16:46 | disposition home or self-care (01) ==
LOC: EDBD 13:56 → ER 13:56
DX: S61.217D Laceration without foreign body of left little finger without damage to nail, subsequent encounter (principal); W26.8XXD Contact with other sharp object(s), not elsewhere classified, subsequent encounter; Z87.891 Personal history of nicotine dependence

== ENCOUNTER → 2020-05-22 | Emergency (ER) | payer MEDICAID ==
[~2020-05-22] VITALS: Ht 167.6 cm; Wt 70.3 kg
[~2020-05-22] MED LIST changes: -SODIUM CHLORIDE 0.9% 1,000 ML IV ONE; +SODIUM CHLORIDE 0.9% 1,000 ML IVB ONE
[2020-05-22 16:04] VITALS: BP 127/78
[2020-05-22 17:10] LABS: Basophils # (auto) 0.1 10 ^3/uL (0-0.2); Eosinophils # (auto) 0 10 ^3/uL (0-0.8); Hemoglobin 13.7 g/dL (13.5-17.5); Lymphocytes # (auto) 0.7 10 ^3/uL (0.4-5.4); Monocytes # (auto) 0.3 10 ^3/uL (0-1.3); Monocytes % (auto) 4.9 % (0.0-12.0)
[2020-05-22 17:12] LABS: Basophils % (auto) 1.3 % (0.0-2.0); Eosinophils % (auto) 0.5 % (0.0-7.0); Hematocrit 40.6 % (41.0-53.0); Lymphocytes % (auto) 13.9 % (10.0-50.0); Mean Corpuscular Hemoglobin 34.3 pg (28.0-32.0); Mean Corpuscular Hgb Conc. 33.7 g/dL (32.0-36.0); Mean Corpuscular Volume 101.8 fL (80.0-100.0); Neutrophils # (auto) 4.2 10 ^3/uL (1.6-8.6); Neutrophils % (auto) 79.4 % (37.0-80.0); Red Blood Cells 3.99 10^6/uL (4.5-5.90); Red Cell Distribution Width 13.9 % (11.8-14.3); White Blood Cell 5.3 10^3/uL (4.4-10.8)
[2020-05-22 17:16] LABS: Platelet Count (auto) 65 10^3/uL (140-450)
[2020-05-22 17:28] LABS: Albumin 3.7 g/dL (3.4-5.0); Calcium 8.3 mg/dL (8.5-10.1); Potassium 3.8 mmol/L (3.5-5.1)
[2020-05-22 17:32] LABS: BUN/Creatinine Ratio 7.7
[2020-05-22 17:34] LABS: Bilirubin, Total 0.5 mg/dL (0.2-1.0); Total Protein 8.6 g/dL (6.4-8.2)
== END | disposition home or self-care (01) ==
LOC: EDUNIT# 15:57 → ER 15:59 → EDBD 15:59
DX: S61.217D Laceration without foreign body of left little finger without damage to nail, subsequent encounter (principal); E86.0 Dehydration; F10.129 Alcohol abuse with intoxication, unspecified; X58.XXXD Exposure to other specified factors, subsequent encounter; Y90.9 Presence of alcohol in blood, level not specified
CPT/HCPCS: 36415; 80053; 80320; 85025

== ENCOUNTER → 2020-06-28 | Emergency (ER) | payer MEDICAID ==
[~2020-06-28] VITALS: Ht 167.6 cm; Wt 65.8 kg
[~2020-06-28] MED LIST changes: +LORazepam 2MG/ML-1ML VIAL IV ONE; -THIAMINE 100mg/ml INJ (200mg/2ml VIAL) IV ONE
[2020-06-28 14:15] LABS: Basophils # (auto) 0.1 10 ^3/uL (0-0.2); Eosinophils # (auto) 0.1 10 ^3/uL (0-0.8); Hemoglobin 13.3 g/dL (13.5-17.5); Monocytes # (auto) 0.5 10 ^3/uL (0-1.3); Neutrophils # (auto) 3.4 10 ^3/uL (1.6-8.6); White Blood Cell 5.1 10^3/uL (4.4-10.8)
[2020-06-28 14:18] LABS: Basophils % (auto) 1.2 % (0.0-2.0); Eosinophils % (auto) 1.2 % (0.0-7.0); Hematocrit 39.6 % (41.0-53.0); Lymphocytes # (auto) 1.1 10 ^3/uL (0.4-5.4); Lymphocytes % (auto) 22.3 % (10.0-50.0); Mean Corpuscular Hemoglobin 34.3 pg (28.0-32.0); Mean Corpuscular Hgb Conc. 33.6 g/dL (32.0-36.0); Monocytes % (auto) 9.3 % (0.0-12.0); Nucleated Red Blood Cells % 0.1 %; Platelet Count (auto) 106 10^3/uL (140-450); Red Blood Cells 3.88 10^6/uL (4.5-5.90); Red Cell Distribution Width 14.1 % (11.8-14.3)
[2020-06-28 14:22] LABS: Albumin 3.6 g/dL (3.4-5.0); BUN/Creatinine Ratio 4.8; Calcium 8.9 mg/dL (8.5-10.1); Potassium 3.6 mmol/L (3.5-5.1)
[2020-06-28 14:31] LABS: Bilirubin, Total 0.4 mg/dL (0.2-1.0)
[2020-06-28 15:16] LABS: Blood Alcohol 459.7 mg/dL (0-5)
[2020-06-28 15:31] VITALS: BP 129/79
[2020-06-28 16:00] LABS: Urine WBC None Seen /hpf (0 - 3)
[2020-06-28 16:12] LABS: Urine Bacteria NONE SEEN /hpf (None Seen); Urine Blood Negative /uL (Negative); Urine Specific Gravity 1.003 (1.001-1.035)
== END | disposition home or self-care (01) ==
LOC: EDUNIT# 12:55 → ER 12:56 → EDBD 12:56
DX: G40.909 Epilepsy, unspecified, not intractable, without status epilepticus (principal); F10.129 Alcohol abuse with intoxication, unspecified; Z87.891 Personal history of nicotine dependence; Y90.8 Blood alcohol level of 240 mg/100 ml or more
CPT/HCPCS: 36415; 80053; 80320; 81001; 83690; 85025; 96361; 96365; 99284; J1953; J7030; J7060

== ENCOUNTER 2020-07-10 23:16 | Emergency (ER) | payer MEDICAID ==
[~2020-07-10] VITALS: Ht 165.1 cm; Wt 72.6 kg
[2020-07-11 00:48] LABS: Basophils # (auto) 0.1 10 ^3/uL (0-0.2); Basophils % (auto) 1.7 % (0.0-2.0); Eosinophils # (auto) 0 10 ^3/uL (0-0.8); Eosinophils % (auto) 0.8 % (0.0-7.0); Hematocrit 38.4 % (41.0-53.0); Lymphocytes # (auto) 2.1 10 ^3/uL (0.4-5.4); Mean Corpuscular Hemoglobin 34.7 pg (28.0-32.0); Mean Corpuscular Volume 102.2 fL (80.0-100.0); Monocytes # (auto) 0.3 10 ^3/uL (0-1.3); Monocytes % (auto) 6.4 % (0.0-12.0); Neutrophils # (auto) 2.8 10 ^3/uL (1.6-8.6); Neutrophils % (auto) 52.1 % (37.0-80.0); Nucleated Red Blood Cells % 0.1 %; Platelet Count (auto) 181 10^3/uL (140-450); Red Blood Cells 3.76 10^6/uL (4.5-5.90); Red Cell Distribution Width 13.9 % (11.8-14.3); White Blood Cell 5.4 10^3/uL (4.4-10.8)
[2020-07-11 01:02] LABS: INR 0.95 (0.9-1.15); Partial Thromboplastin Time 25.9 sec (23.0-31.2)
[2020-07-11 01:08] LABS: Alanine Aminotransferase 30 U/L (16-61); Albumin 3.6 g/dL (3.4-5.0); Anion Gap 8 (5-15); Aspartate Aminotransferase 50 U/L (15-37); BUN/Creatinine Ratio 9.2; Blood Urea Nitrogen 6 mg/dL (7-18); Calcium 8.5 mg/dL (8.5-10.1); Carbon Dioxide 25 mmol/L (21-32); Chloride 110 mmol/L (98-107); GFR African American 182 mL/min; GFR Non-African American 150 mL/min; Glucose 79 mg/dL (74-106); Potassium 3.6 mmol/L (3.5-5.1); Sodium 143 mmol/L (136-145)
[2020-07-11 01:16] LABS: Alkaline Phosphatase 146 U/L (45-117); Bilirubin, Total 0.3 mg/dL (0.2-1.0); Total Protein 9.1 g/dL (6.4-8.2)
[2020-07-11] MEDS ORDERED: SODIUM CHLORIDE 0.9% 1,000 ML IV ONE (01:45)
[2020-07-11] MEDS ORDERED: THIAMINE 100mg/ml INJ (200mg/2ml VIAL) IV ONE (02:00)
[2020-07-11] MEDS ORDERED: FOLIC ACID 1 MG TAB PO ONE (02:30)
[2020-07-11] MEDS ORDERED: MULTIPLE VITAMIN TAB PO ONE (02:30)
[2020-07-11 04:57] VITALS: BP 126/91
== END 2020-07-11 04:59 | disposition home or self-care (01) ==
LOC: ER 23:16 → EDBD 23:16 → ER 07-11 04:59
DX: R07.89 Other chest pain (principal); F10.920 Alcohol use, unspecified with intoxication, uncomplicated; Z87.891 Personal history of nicotine dependence
CPT/HCPCS: 36415; 71045; 80053; 80320; 84484; 85025; 85610; 85730; 93005; 96361; 96374; 99285; J3411

== ENCOUNTER 2020-07-16 19:27 | Emergency (ER) | payer MEDICAID ==
[~2020-07-16] VITALS: Ht 170.2 cm; Wt 65.8 kg
[2020-07-16] MEDS ORDERED: THIAMINE 100mg/ml INJ (200mg/2ml VIAL) IM ONE (20:30)
[2020-07-17 00:30] VITALS: BP 146/86
== END 2020-07-17 00:18 | disposition home or self-care (01) ==
LOC: ER 19:27 → EDBD 19:27 → ER 07-17 00:18
DX: R41.82 Altered mental status, unspecified (principal); G92 Toxic encephalopathy; F10.920 Alcohol use, unspecified with intoxication, uncomplicated; Z87.891 Personal history of nicotine dependence
CPT/HCPCS: 36415; 80320; 96372; 99283; J3411

== ENCOUNTER 2020-07-26 16:53 | Emergency (ER) | payer MEDICAID ==
[~2020-07-26] VITALS: Ht 167.6 cm; Wt 65.8 kg
[2020-07-26] MEDS ORDERED: SODIUM CHLORIDE 0.9% 1,000 ML IV ONE ×2 (16:57)
[2020-07-26] MEDS ORDERED: THIAMINE 100mg/ml INJ (200mg/2ml VIAL) IV ONE (17:00)
[2020-07-26 19:14] LABS: Basophils # (auto) 0 10 ^3/uL (0-0.2); Basophils % (auto) 1.1 % (0.0-2.0); Hemoglobin 12.9 g/dL (13.5-17.5); Lymphocytes # (auto) 1.1 10 ^3/uL (0.4-5.4); Neutrophils # (auto) 2.4 10 ^3/uL (1.6-8.6)
[2020-07-26 19:16] LABS: Eosinophils # (auto) 0 10 ^3/uL (0-0.8); Eosinophils % (auto) 1.1 % (0.0-7.0); Hematocrit 38.8 % (41.0-53.0); Lymphocytes % (auto) 28.8 % (10.0-50.0); Mean Corpuscular Hemoglobin 34.2 pg (28.0-32.0); Mean Corpuscular Hgb Conc. 33.3 g/dL (32.0-36.0); Mean Corpuscular Volume 102.7 fL (80.0-100.0); Monocytes # (auto) 0.3 10 ^3/uL (0-1.3); Monocytes % (auto) 6.6 % (0.0-12.0); Neutrophils % (auto) 62.4 % (37.0-80.0); Platelet Count (auto) 60 10^3/uL (140-450); Red Blood Cells 3.78 10^6/uL (4.5-5.90); Red Cell Distribution Width 14.2 % (11.8-14.3); White Blood Cell 3.9 10^3/uL (4.4-10.8)
[2020-07-26 19:33] LABS: Albumin 3.4 g/dL (3.4-5.0); BUN/Creatinine Ratio 6.3; Calcium 8.5 mg/dL (8.5-10.1); Potassium 4.2 mmol/L (3.5-5.1)
[2020-07-26 19:38] LABS: Bilirubin, Total 0.3 mg/dL (0.2-1.0); Total Protein 8.6 g/dL (6.4-8.2)
[2020-07-27] MEDS ORDERED: SODIUM CHLORIDE 0.9% 1,000 ML IV ONE (02:45)
[2020-07-27 03:00] VITALS: BP 105/76
== END 2020-07-27 04:48 | disposition home or self-care (01) ==
LOC: EDBD 16:53 → ER 16:53
DX: F10.129 Alcohol abuse with intoxication, unspecified (principal); E86.0 Dehydration; Y90.9 Presence of alcohol in blood, level not specified
CPT/HCPCS: 36415; 80053; 80320; 85025; 96361; 96374; 99285; J3411

== ENCOUNTER 2020-08-01 22:29 | Emergency (ER) | payer MEDICAID ==
[~2020-08-01] VITALS: Ht 172.7 cm; Wt 63.5 kg
[2020-08-01] MEDS ORDERED: THIAMINE 100mg/ml INJ (200mg/2ml VIAL) IV ONE (23:15)
[2020-08-01] MEDS ORDERED: SODIUM CHLORIDE 0.9% 2,000 ML IV ONE (23:15)
[2020-08-01 23:27] LABS: Urine WBC None Seen /hpf (0 - 3)
[2020-08-01 23:32] LABS: Basophils # (auto) 0.1 10 ^3/uL (0-0.2); Eosinophils # (auto) 0 10 ^3/uL (0-0.8); Hemoglobin 13.5 g/dL (13.5-17.5); Monocytes # (auto) 0.2 10 ^3/uL (0-1.3); Platelet Count (auto) 78 10^3/uL (140-450); Red Cell Distribution Width 14.2 % (11.8-14.3); White Blood Cell 4.4 10^3/uL (4.4-10.8)
[2020-08-01 23:34] LABS: Basophils % (auto) 2.5 % (0.0-2.0); Eosinophils % (auto) 0.6 % (0.0-7.0); Hematocrit 39.6 % (41.0-53.0); Lymphocytes # (auto) 1.2 10 ^3/uL (0.4-5.4); Mean Corpuscular Hgb Conc. 34.2 g/dL (32.0-36.0); Mean Corpuscular Volume 102.4 fL (80.0-100.0); Neutrophils # (auto) 2.8 10 ^3/uL (1.6-8.6); Neutrophils % (auto) 64.9 % (37.0-80.0); Nucleated Red Blood Cells % 0.1 %; Red Blood Cells 3.86 10^6/uL (4.5-5.90)
[2020-08-01 23:38] LABS: Urine Bacteria NONE SEEN /hpf (None Seen); Urine Blood Negative /uL (Negative); Urine Mucus FEW (None Seen); Urine Specific Gravity 1.004 (1.001-1.035)
[2020-08-01 23:50] LABS: Albumin 3.8 g/dL (3.4-5.0); Calcium 8.9 mg/dL (8.5-10.1); Magnesium 2.3 mg/dL (1.6-2.6); Potassium 3.9 mmol/L (3.5-5.1); Salicylate < 1.7 mg/dL (2.8-20.0)
[2020-08-01 23:51] LABS: Amphetamine Screen, Urine NEGATIVE (NEGATIVE); Barbiturate Scree,Urine NEGATIVE (NEGATIVE); Benzodiazephine Screen, Urine NEGATIVE (NEGATIVE); Cannabinoid Screen, Urine NEGATIVE (NEGATIVE); Cocaine Screen, Urine NEGATIVE (NEGATIVE); Opiate Scree,Urine NEGATIVE (NEGATIVE); Phencyclidine Screen, Urine NEGATIVE (NEGATIVE)
[2020-08-01 23:52] LABS: BUN/Creatinine Ratio 6.2
[2020-08-01 23:53] LABS: Acetaminophen < 2.0 ug/mL (10-30)
[2020-08-01 23:55] LABS: Bilirubin, Total 0.3 mg/dL (0.2-1.0); Total Protein 9.3 g/dL (6.4-8.2)
[2020-08-02 04:19] VITALS: BP 97/57
== END 2020-08-02 05:09 | disposition home or self-care (01) ==
LOC: EDBD 22:29 → ER 22:32
DX: F10.920 Alcohol use, unspecified with intoxication, uncomplicated (principal); R41.0 Disorientation, unspecified; G92 Toxic encephalopathy
CPT/HCPCS: 36415; 80053; 80307; 80320; 80329; 81001; 83735; 85025; 96361; 96374; 99285; J3411; J7030

== ENCOUNTER → 2020-08-07 | Emergency (ER) | payer MEDICAID ==
[~2020-08-07] VITALS: Ht 162.6 cm; Wt 68.0 kg
[~2020-08-07] MED LIST changes: -LORazepam 2MG/ML-1ML VIAL IV ONE; +SODIUM CHLORIDE 0.9% 1,000 ML IV ONE; -SODIUM CHLORIDE 0.9% 1,000 ML IVB ONE; +THIAMINE 100mg/ml INJ (200mg/2ml VIAL) IV ONE
[2020-08-07 18:36] LABS: Eosinophils # (auto) 0 10 ^3/uL (0-0.8); Hemoglobin 13.3 g/dL (13.5-17.5); Monocytes # (auto) 0.5 10 ^3/uL (0-1.3); Neutrophils # (auto) 5.5 10 ^3/uL (1.6-8.6)
[2020-08-07 18:39] LABS: Basophils # (auto) 0.1 10 ^3/uL (0-0.2); Basophils % (auto) 0.8 % (0.0-2.0); Eosinophils % (auto) 0.5 % (0.0-7.0); Hematocrit 39.3 % (41.0-53.0); Lymphocytes # (auto) 1.5 10 ^3/uL (0.4-5.4); Lymphocytes % (auto) 19.7 % (10.0-50.0); Mean Corpuscular Hemoglobin 34.6 pg (28.0-32.0); Mean Corpuscular Hgb Conc. 33.9 g/dL (32.0-36.0); Mean Corpuscular Volume 102.3 fL (80.0-100.0); Platelet Count (auto) 67 10^3/uL (140-450); Red Blood Cells 3.85 10^6/uL (4.5-5.90); Red Cell Distribution Width 14.1 % (11.8-14.3); White Blood Cell 7.6 10^3/uL (4.4-10.8)
[2020-08-07 18:56] LABS: BUN/Creatinine Ratio 9.7; Calcium 9.1 mg/dL (8.5-10.1); Potassium 3.6 mmol/L (3.5-5.1); Salicylate < 1.7 mg/dL (2.8-20.0)
[2020-08-07 18:56] LABS: Amphetamine Screen, Urine NEGATIVE (NEGATIVE); Barbiturate Scree,Urine NEGATIVE (NEGATIVE); Benzodiazephine Screen, Urine NEGATIVE (NEGATIVE); Cannabinoid Screen, Urine NEGATIVE (NEGATIVE); Cocaine Screen, Urine NEGATIVE (NEGATIVE); Opiate Scree,Urine NEGATIVE (NEGATIVE); Phencyclidine Screen, Urine NEGATIVE (NEGATIVE)
[2020-08-07 18:58] LABS: Acetaminophen < 2.0 ug/mL (10-30)
[2020-08-07 19:05] LABS: Bilirubin, Total 0.3 mg/dL (0.2-1.0); Total Protein 8.9 g/dL (6.4-8.2)
[2020-08-07 21:00] VITALS: BP 104/64
== END | disposition home or self-care (01) ==
LOC: EDUNIT# 18:01 → ER 18:04 → EDBD 18:04
DX: R41.82 Altered mental status, unspecified (principal); G93.40 Encephalopathy, unspecified; F10.920 Alcohol use, unspecified with intoxication, uncomplicated; Z87.891 Personal history of nicotine dependence
CPT/HCPCS: 36415; 80053; 80307; 80320; 80329; 83735; 85025; 96361; 96374; 99285; J3411; J7030

== ENCOUNTER 2020-09-08 10:47 | Emergency (ER) | payer MEDICAID ==
[~2020-09-08] VITALS: Ht 162.6 cm; Wt 76.2 kg
[2020-09-08] MEDS ORDERED: SODIUM CHLORIDE 0.9% 1,000 ML IVB ONE (12:15)
[2020-09-08 12:21] LABS: Basophils # (auto) 0.1 10 ^3/uL (0-0.2); Eosinophils # (auto) 0.1 10 ^3/uL (0-0.8); Hemoglobin 13.5 g/dL (13.5-17.5); Mean Corpuscular Volume 102.6 fL (80.0-100.0); Monocytes # (auto) 0.4 10 ^3/uL (0-1.3); Neutrophils # (auto) 3.7 10 ^3/uL (1.6-8.6); Nucleated Red Blood Cells % 0.1 %; White Blood Cell 5.7 10^3/uL (4.4-10.8)
[2020-09-08 12:23] LABS: Basophils % (auto) 1.2 % (0.0-2.0); Eosinophils % (auto) 1.1 % (0.0-7.0); Hematocrit 40.2 % (41.0-53.0); Lymphocytes # (auto) 1.4 10 ^3/uL (0.4-5.4); Lymphocytes % (auto) 24.5 % (10.0-50.0); Mean Corpuscular Hemoglobin 34.4 pg (28.0-32.0); Mean Corpuscular Hgb Conc. 33.6 g/dL (32.0-36.0); Monocytes % (auto) 7.5 % (0.0-12.0); Neutrophils % (auto) 65.7 % (37.0-80.0); Platelet Count (auto) 126 10^3/uL (140-450); Red Blood Cells 3.92 10^6/uL (4.5-5.90); Red Cell Distribution Width 14.4 % (11.8-14.3)
[2020-09-08 12:36] LABS: Albumin 3.9 g/dL (3.4-5.0); Calcium 8.6 mg/dL (8.5-10.1); Magnesium 2.3 mg/dL (1.6-2.6); Potassium 4.1 mmol/L (3.5-5.1)
[2020-09-08 12:37] LABS: INR 0.96 (0.9-1.15); Partial Thromboplastin Time 29.1 sec (23.0-31.2)
[2020-09-08 12:42] LABS: BUN/Creatinine Ratio 6.7; Bilirubin, Total 0.3 mg/dL (0.2-1.0); Total Protein 8.7 g/dL (6.4-8.2)
[2020-09-08] MEDS ORDERED: FOLIC ACID 1 MG, MULTIPLE VITAMIN 10 ML, MAGNESIUM SULF SDV 50% 8 MEQ, THIAMINE INJ 100... INJ STA ×5 (14:39)
[2020-09-08] MEDS ORDERED: THIAMINE 100mg/ml INJ (200mg/2ml VIAL) IV ONE (14:45)
[2020-09-08] MEDS ORDERED: SODIUM CHLORIDE 0.9% 1,000 ML IV ONE (15:15)
[2020-09-08 17:10] LABS: Urine WBC None Seen /hpf (0 - 3)
[2020-09-08 17:18] LABS: Urine Bacteria NONE SEEN /hpf (None Seen); Urine Blood Negative /uL (Negative); Urine Specific Gravity 1.002 (1.001-1.035)
[2020-09-08 17:31] LABS: Amphetamine Screen, Urine NEGATIVE (NEGATIVE); Barbiturate Scree,Urine NEGATIVE (NEGATIVE); Benzodiazephine Screen, Urine NEGATIVE (NEGATIVE); Cannabinoid Screen, Urine NEGATIVE (NEGATIVE); Cocaine Screen, Urine NEGATIVE (NEGATIVE); Opiate Scree,Urine NEGATIVE (NEGATIVE); Phencyclidine Screen, Urine NEGATIVE (NEGATIVE)
[2020-09-08] MEDS ORDERED: PANTOPRAZOLE 40 MG TAB PO ONE (19:30)
[2020-09-08 21:00] VITALS: BP 120/79
== END 2020-09-08 21:20 | disposition home or self-care (01) ==
LOC: EDBD 10:47 → ER 10:47
DX: F10.920 Alcohol use, unspecified with intoxication, uncomplicated (principal); K29.20 Alcoholic gastritis without bleeding; Z87.891 Personal history of nicotine dependence
CPT/HCPCS: 36415; 71045; 74176; 80053; 80307; 80320; 81001; 83690; 83735; 85025; 85610; 85730; 96361; 96365; 96375; 99285; J3411; J3475; J7030

== ENCOUNTER 2020-10-01 20:30 | Emergency (ER) | payer MEDICAID ==
[~2020-10-01] VITALS: Ht 172.7 cm; Wt 68.0 kg
[2020-10-01] MEDS ORDERED: SODIUM CHLORIDE 0.9% 1,000 ML IV ONE (20:45)
[2020-10-01 22:10] LABS: Basophils # (auto) 0 10 ^3/uL (0-0.2); Eosinophils # (auto) 0 10 ^3/uL (0-0.8); Mean Corpuscular Hgb Conc. 33.5 g/dL (32.0-36.0); Monocytes # (auto) 0.3 10 ^3/uL (0-1.3); Monocytes % (auto) 4.9 % (0.0-12.0); White Blood Cell 5.3 10^3/uL (4.4-10.8)
[2020-10-01 22:13] LABS: Basophils % (auto) 0.7 % (0.0-2.0); Eosinophils % (auto) 0.5 % (0.0-7.0); Hematocrit 44.6 % (41.0-53.0); Lymphocytes # (auto) 1.5 10 ^3/uL (0.4-5.4); Lymphocytes % (auto) 28.5 % (10.0-50.0); Mean Corpuscular Volume 101.4 fL (80.0-100.0); Neutrophils # (auto) 3.4 10 ^3/uL (1.6-8.6); Neutrophils % (auto) 65.4 % (37.0-80.0); Platelet Count (auto) 143 10^3/uL (140-450); Red Cell Distribution Width 13.9 % (11.8-14.3)
[2020-10-01 22:29] LABS: Albumin 4.3 g/dL (3.4-5.0); Calcium 8.9 mg/dL (8.5-10.1); Potassium 3.9 mmol/L (3.5-5.1)
[2020-10-01 22:39] LABS: BUN/Creatinine Ratio 6.2; Bilirubin, Total 0.3 mg/dL (0.2-1.0); Total Protein 9.5 g/dL (6.4-8.2)
[2020-10-01] MEDS ORDERED: levETIRAcetam 500 MG/5ML INJ IV ONE (23:37)
[2020-10-02 11:30] VITALS: BP 108/74
== END 2020-10-02 12:52 | disposition home or self-care (01) ==
LOC: EDBD 20:30 → ER 20:33
DX: F10.920 Alcohol use, unspecified with intoxication, uncomplicated (principal); Z87.891 Personal history of nicotine dependence
CPT/HCPCS: 36415; 80053; 80320; 85025; 96361; 96374; 99285; J1953; 96360; J7060

== ENCOUNTER 2020-10-05 17:29 | Inpatient (IN) | payer MEDICAID ==
[~2020-10-05] VITALS: Ht 162.6 cm; Wt 65.8 kg
[2020-10-05] MEDS ORDERED: SODIUM CHLORIDE 0.9% 3,000 ML IV ONE (19:15)
[2020-10-05 20:25] LABS: Basophils # (auto) 0.1 10 ^3/uL (0-0.2); Eosinophils # (auto) 0 10 ^3/uL (0-0.8); Monocytes # (auto) 0.4 10 ^3/uL (0-1.3); Monocytes % (auto) 5.5 % (0.0-12.0)
[2020-10-05 20:26] LABS: Basophils % (auto) 1.3 % (0.0-2.0); Eosinophils % (auto) 0.3 % (0.0-7.0); Hematocrit 40.7 % (41.0-53.0); Hemoglobin 13.6 g/dL (13.5-17.5); Lymphocytes # (auto) 1.3 10 ^3/uL (0.4-5.4); Mean Corpuscular Hemoglobin 34.1 pg (28.0-32.0); Mean Corpuscular Hgb Conc. 33.4 g/dL (32.0-36.0); Mean Corpuscular Volume 102.2 fL (80.0-100.0); Neutrophils % (auto) 73.9 % (37.0-80.0); Nucleated Red Blood Cells % 0.1 %; Platelet Count (auto) 93 10^3/uL (140-450); Red Blood Cells 3.99 10^6/uL (4.5-5.90); Red Cell Distribution Width 14.2 % (11.8-14.3); White Blood Cell 6.7 10^3/uL (4.4-10.8)
[2020-10-05 20:38] LABS: INR 0.97 (0.9-1.15)
[2020-10-05 20:39] LABS: Potassium 3.4 mmol/L (3.5-5.1)
[2020-10-05 20:45] LABS: Albumin 3.8 g/dL (3.4-5.0); BUN/Creatinine Ratio 11.7; Bilirubin, Total 0.3 mg/dL (0.2-1.0); Calcium 8.1 mg/dL (8.5-10.1); Total Protein 8.4 g/dL (6.4-8.2)
[2020-10-05] MEDS ORDERED: MORPHINE SULFATE 4 MG/ML SYR/VIAL IV PRN (23:15)
[2020-10-05] MEDS ORDERED: HYDROcodone-ACET 5/325MG TAB PO PRN (23:15)
[2020-10-05] MEDS ORDERED: POTASSIUM CHL 20 Meq TABLET PO ONE (23:15)
[2020-10-05] MEDS: SODIUM CHLORIDE 0.9% 1,000 ML IV SCH (23:15)
[2020-10-05] MEDS ORDERED: NITROGLYCERIN 0.4 MG SL TAB SL PRN (23:15)
[2020-10-05] MEDS ORDERED: ONDANSETRON HCL 4 MG/2 ML VIAL IV PRN (23:15)
[2020-10-05] MEDS ORDERED: DOCUSATE SOD 100 MG CAP PO PRN (23:15)
[2020-10-05] MEDS ORDERED: MORPHINE SULF INJ 2 MG/ML SYRINGE 1ML IV PRN (23:15)
[2020-10-05] MEDS ORDERED: ACETAMINOPHEN 325 MG TAB PO PRN (23:15)
[2020-10-06 02:15] VITALS: BP 112/73
[2020-10-06 03:41] VITALS: BP 112/73
--- NOTE | 2020-10-06 07:40 | NUR ---
Opening Shift Note Assumed care of patient, awake, alert and oriented x 4. Respirations are even and non labored on room air. No S/S of distress/SOB or pain. Bed is in the lowest and locked position with side rails up x 2 and call light within reach. Padded the side rails for seizure precautions and ensured that suction setup is available. Instructed on POC and to call for assist PRN, will continue to monitor for changes Q1hr and PRN.
[2020-10-06 09:00] VITALS: BP 114/78
[2020-10-06 09:43] LABS: Basophils # (auto) 0.1 10 ^3/uL (0-0.2); Basophils % (auto) 1.4 % (0.0-2.0); Eosinophils # (auto) 0 10 ^3/uL (0-0.8); Eosinophils % (auto) 0.8 % (0.0-7.0); Hemoglobin 12.3 g/dL (13.5-17.5); Monocytes # (auto) 0.3 10 ^3/uL (0-1.3); Monocytes % (auto) 6.8 % (0.0-12.0); Platelet Count (auto) 91 10^3/uL (140-450); White Blood Cell 4.8 10^3/uL (4.4-10.8)
[2020-10-06 09:45] LABS: Hematocrit 36.8 % (41.0-53.0); Lymphocytes # (auto) 1.6 10 ^3/uL (0.4-5.4); Mean Corpuscular Hemoglobin 34.2 pg (28.0-32.0); Mean Corpuscular Hgb Conc. 33.5 g/dL (32.0-36.0); Mean Corpuscular Volume 102.1 fL (80.0-100.0); Neutrophils # (auto) 2.8 10 ^3/uL (1.6-8.6); Red Cell Distribution Width 14.2 % (11.8-14.3)
[2020-10-06 09:59] LABS: Albumin 3.5 g/dL (3.4-5.0); Calcium 8.3 mg/dL (8.5-10.1); Potassium 3.7 mmol/L (3.5-5.1)
[2020-10-06] MEDS: ENOXAPARIN SOD 40 MG/0.4 ML SYRINGE SC SCH (10:00)
[2020-10-06 10:03] LABS: BUN/Creatinine Ratio 14.1; Bilirubin, Total 0.4 mg/dL (0.2-1.0); Total Protein 7.8 g/dL (6.4-8.2)
[2020-10-06] MEDS: FOLIC ACID 1 MG TAB PO SCH (11:14)
[2020-10-06] MEDS: THIAMINE HCL 100 MG TAB PO SCH (11:15)
[2020-10-06] MEDS: MULTIPLE VITAMIN TAB PO SCH (11:15)
[2020-10-06] MEDS ORDERED: FOLIC ACID 1 MG, MULTIPLE VITAMIN 10 ML, MAGNESIUM SULF SDV 50% 8 MEQ, THIAMINE INJ 100... INJ ONE ×5 (12:00)
[2020-10-06 13:07] VITALS: BP 134/88
--- NOTE | 2020-10-06 15:22 | NUR ---
Dr. Montgomery at bedside Reviewed POC and answered all questions.
[2020-10-06] MEDS ORDERED: PANTOPRAZOLE 40 MG TAB PO ONE (15:30)
[2020-10-06] MEDS: SODIUM CHLORIDE 0.9% 1,000 ML IV SCH (15:55)
[2020-10-06 16:50] VITALS: BP 147/93
[2020-10-06 22:00] VITALS: BP 149/88
[2020-10-06] MEDS: levETIRAcetam 500 MG TAB PO SCH (22:26)
[2020-10-07] MEDS: SODIUM CHLORIDE 0.9% 1,000 ML IV SCH (03:57)
[2020-10-07 05:00] VITALS: BP 141/78
[2020-10-07] MEDS: levETIRAcetam 500 MG TAB PO SCH ×2 (06:30→13:57)
[2020-10-07 07:25] LABS: Basophils # (auto) 0 10 ^3/uL (0-0.2); Eosinophils # (auto) 0 10 ^3/uL (0-0.8); Eosinophils % (auto) 0.2 % (0.0-7.0); Hematocrit 39.7 % (41.0-53.0); Hemoglobin 13.4 g/dL (13.5-17.5); Lymphocytes # (auto) 0.7 10 ^3/uL (0.4-5.4); Mean Corpuscular Hgb Conc. 33.7 g/dL (32.0-36.0); Monocytes # (auto) 0.5 10 ^3/uL (0-1.3); Monocytes % (auto) 13.5 % (0.0-12.0); Neutrophils # (auto) 2.5 10 ^3/uL (1.6-8.6); Neutrophils % (auto) 66.3 % (37.0-80.0); Nucleated Red Blood Cells % 0.1 %; Platelet Count (auto) 74 10^3/uL (140-450); Red Blood Cells 3.93 10^6/uL (4.5-5.90); Red Cell Distribution Width 13.4 % (11.8-14.3); White Blood Cell 3.8 10^3/uL (4.4-10.8)
--- NOTE | 2020-10-07 07:25 | NUR ---
Opening Shift Note Assumed care of patient, awake, alert and oriented x 4. Respirations are even and non labored on room air. No S/S of distress/SOB or pain. Bed is in the lowest and locked position with side rails up x 2 and call light within reach. Instructed on POC and to call for assist PRN, will continue to monitor for changes Q1hr and PRN.
[2020-10-07 07:33] LABS: Potassium 3.9 mmol/L (3.5-5.1)
[2020-10-07 08:00] LABS: Albumin 3.5 g/dL (3.4-5.0); BUN/Creatinine Ratio 8.9; Calcium 9.2 mg/dL (8.5-10.1); Magnesium 2.4 mg/dL (1.6-2.6)
--- NOTE | 2020-10-07 08:45 | NUR ---
Patient ambulating Steady gait and no signs of distress noted.
[2020-10-07 09:00] VITALS: BP 140/75
[2020-10-07] MEDS: MULTIPLE VITAMIN TAB PO SCH (09:46)
[2020-10-07] MEDS: FOLIC ACID 1 MG TAB PO SCH (09:46)
[2020-10-07] MEDS: ENOXAPARIN SOD 40 MG/0.4 ML SYRINGE SC SCH (09:47)
[2020-10-07] MEDS: THIAMINE HCL 100 MG TAB PO SCH (09:47)
[2020-10-07] MEDS ORDERED: PANTOPRAZOLE 40 MG TAB PO SCH (10:00)
[2020-10-07 13:00] VITALS: BP 153/89
[2020-10-07 17:00] VITALS: BP 140/93
[2020-10-07 18:20] VITALS: BP 140/93
--- NOTE | 2020-10-07 18:59 | NUR ---
Discharge instructions given as ordered. Encouraged to call and follow up with PMD as instructed. All questions and concerns addressed. Patient verbalized understanding. IV removed with catheter intact, pressure dressing applied. Telemetry unit returned to ICU. Patient requested to be taken to lobby to wait for his ride via wheelchair with all personal belongings, accompanied by staff. No distress noted at time of departure.
== END 2020-10-07 18:59 | disposition home or self-care (01) | DRG 775 ==
LOC: EDBD 17:29 → ER 17:29 → TELE-WESTW 17:30
PROVIDERS: ADMIT Nurse Practitioner Family; ATTEND Internal Medicine
DX: F10.129 Alcohol abuse with intoxication, unspecified (principal); G93.41 Metabolic encephalopathy; Y90.8 Blood alcohol level of 240 mg/100 ml or more; G40.909 Epilepsy, unspecified, not intractable, without status epilepticus; F32.9 Major depressive disorder, single episode, unspecified; E87.6 Hypokalemia; Z87.891 Personal history of nicotine dependence; Z91.19 Patient's noncompliance with other medical treatment and regimen; K29.70 Gastritis, unspecified, without bleeding
CPT/HCPCS: 36415; 80053; 80320; 83735; 85025; 85610; 96360; 96361; G0378

== ENCOUNTER 2021-01-04 14:22 | Inpatient (IN) | payer MEDICAID ==
[~2021-01-04] VITALS: Ht 162.6 cm; Wt 69.8 kg
[2021-01-04] MEDS ORDERED: SODIUM CHLORIDE 0.9% 1,000 ML IV ONE ×3 (14:45→19:30)
[2021-01-04] MEDS ORDERED: THIAMINE 100mg/ml INJ (200mg/2ml VIAL) IV ONE (15:00)
[2021-01-04 15:16] LABS: Eosinophils # (auto) 0 10 ^3/uL (0-0.8); Eosinophils % (auto) 0.6 % (0.0-7.0); Hemoglobin 12.7 g/dL (13.5-17.5); Lymphocytes # (auto) 1.3 10 ^3/uL (0.4-5.4); Monocytes # (auto) 0.7 10 ^3/uL (0-1.3); Nucleated Red Blood Cells % 0.1 %; Platelet Count (auto) 134 10^3/uL (140-450)
[2021-01-04 15:18] LABS: Basophils # (auto) 0 10 ^3/uL (0-0.2); Basophils % (auto) 0.7 % (0.0-2.0); Hematocrit 36.8 % (41.0-53.0); Lymphocytes % (auto) 18.5 % (10.0-50.0); Mean Corpuscular Hemoglobin 34.8 pg (28.0-32.0); Mean Corpuscular Hgb Conc. 34.6 g/dL (32.0-36.0); Mean Corpuscular Volume 100.8 fL (80.0-100.0); Monocytes % (auto) 9.4 % (0.0-12.0); Neutrophils % (auto) 70.8 % (37.0-80.0); Red Blood Cells 3.65 10^6/uL (4.5-5.90); Red Cell Distribution Width 13.5 % (11.8-14.3)
[2021-01-04 15:35] LABS: Albumin 3.5 g/dL (3.4-5.0); BUN/Creatinine Ratio 4.4; Calcium 8.6 mg/dL (8.5-10.1); Magnesium 2.1 mg/dL (1.6-2.6); Potassium 3.6 mmol/L (3.5-5.1)
[2021-01-04 15:38] LABS: Bilirubin, Total 0.3 mg/dL (0.2-1.0); Total Protein 8.2 g/dL (6.4-8.2)
[2021-01-04 15:57] LABS: Blood Alcohol 573.2 mg/dL (0-5)
[2021-01-04] MEDS ORDERED: FOLIC ACID 1 MG, MULTIPLE VITAMIN 10 ML, MAGNESIUM SULF SDV 50% 8 MEQ, THIAMINE INJ 100... INJ STA ×5 (19:28)
[2021-01-04] MEDS ORDERED: cefTRIAXone 1GM/50ML D5W 50 ML IV ONE (19:30)
[2021-01-04] MEDS ORDERED: FOLIC ACID 1 MG, MAGNESIUM SULF SDV 50% 8 MEQ, THIAMINE INJ 100 MG in SODIUM CHLORIDE 0... INJ STA ×2 (20:32→20:55)
[2021-01-04] MEDS ORDERED: MORPHINE SULF INJ 2 MG/ML SYRINGE 1ML IV PRN (23:00)
[2021-01-04] MEDS ORDERED: NITROGLYCERIN 0.4 MG SL TAB SL PRN (23:00)
[2021-01-04] MEDS ORDERED: HYDROcodone-ACET 5/325MG TAB PO PRN (23:00)
[2021-01-04] MEDS ORDERED: DOCUSATE SOD 100 MG CAP PO PRN (23:00)
[2021-01-04] MEDS ORDERED: ACETAMINOPHEN 325 MG TAB PO PRN (23:00)
[2021-01-04] MEDS ORDERED: ONDANSETRON HCL 4 MG/2 ML VIAL IV PRN (23:00)
[2021-01-04] MEDS: SOD CHL 0.45% 1,000 ML IV SCH (23:45)
[2021-01-05 06:40] LABS: Hemoglobin 11.6 g/dL (13.5-17.5); Neutrophils # (auto) 2.5 10 ^3/uL (1.6-8.6); Nucleated Red Blood Cells % 0.1 %; Red Blood Cells 3.34 10^6/uL (4.5-5.90); White Blood Cell 4.3 10^3/uL (4.4-10.8)
[2021-01-05 06:42] LABS: Basophils # (auto) 0 10 ^3/uL (0-0.2); Eosinophils # (auto) 0.1 10 ^3/uL (0-0.8); Eosinophils % (auto) 1.3 % (0.0-7.0); Hematocrit 34.2 % (41.0-53.0); Lymphocytes # (auto) 1.4 10 ^3/uL (0.4-5.4); Lymphocytes % (auto) 31.7 % (10.0-50.0); Mean Corpuscular Hemoglobin 34.8 pg (28.0-32.0); Mean Corpuscular Volume 102.5 fL (80.0-100.0); Monocytes # (auto) 0.3 10 ^3/uL (0-1.3); Monocytes % (auto) 8.1 % (0.0-12.0); Neutrophils % (auto) 57.9 % (37.0-80.0); Platelet Count (auto) 120 10^3/uL (140-450); Red Cell Distribution Width 13.8 % (11.8-14.3)
[2021-01-05 07:10] LABS: Potassium 3.6 mmol/L (3.5-5.1)
[2021-01-05 07:20] LABS: Albumin 3.1 g/dL (3.4-5.0); BUN/Creatinine Ratio 5.2; Bilirubin, Total 0.3 mg/dL (0.2-1.0); Calcium 7.8 mg/dL (8.5-10.1); Magnesium 1.8 mg/dL (1.6-2.6); Total Protein 7.5 g/dL (6.4-8.2)
[2021-01-05] MEDS ORDERED: LORazepam 2MG/ML-1ML VIAL IV ONE (08:15)
[2021-01-05] MEDS: ZINC SULFATE 220mg CAP or TAB PO SCH (08:21)
[2021-01-05] MEDS: FOLIC ACID 1 MG TAB PO SCH (08:21)
[2021-01-05] MEDS: ASCORBIC ACID 500 MG TAB PO SCH ×2 (08:21→21:45)
[2021-01-05] MEDS: MULTIPLE VITAMIN TAB PO SCH (08:21)
[2021-01-05] MEDS: FAMOTIDINE 20 MG TAB PO SCH ×2 (08:21→21:45)
[2021-01-05] MEDS: cefTRIAXone 1GM/50ML D5W 50 ML IV SCH (08:21)
[2021-01-05] MEDS: ENOXAPARIN SOD 40 MG/0.4 ML SYRINGE SC SCH (08:21)
[2021-01-05] MEDS: THIAMINE HCL 100 MG TAB PO SCH (08:21)
[2021-01-05] MEDS ORDERED: chlordiazePOXIDE HCL 25 MG CAP PO PRN (10:15)
[2021-01-05] MEDS ORDERED: LORazepam 2MG/ML-1ML VIAL IV PRN ×2 (10:15→20:00)
[2021-01-05] MEDS: SOD CHL 0.45% 1,000 ML IV SCH (12:21)
[2021-01-05 13:02] VITALS: BP 152/97
[2021-01-05 13:16] VITALS: BP 152/97
[2021-01-05 16:12] VITALS: BP 142/88
[2021-01-05] MEDS: levETIRAcetam 500 MG TAB PO SCH (21:45)
[2021-01-05 22:00] VITALS: BP 147/80
[2021-01-06] MEDS: SOD CHL 0.45% 1,000 ML IV SCH ×2 (02:30→15:00)
[2021-01-06 05:00] VITALS: BP 123/85
[2021-01-06 07:40] LABS: Potassium 3.7 mmol/L (3.5-5.1)
[2021-01-06 07:46] LABS: Basophils # (auto) 0 10 ^3/uL (0-0.2); Basophils % (auto) 0.8 % (0.0-2.0); Eosinophils # (auto) 0.1 10 ^3/uL (0-0.8); Eosinophils % (auto) 1.2 % (0.0-7.0); Hematocrit 39.4 % (41.0-53.0); Hemoglobin 13.4 g/dL (13.5-17.5); Lymphocytes % (auto) 24.7 % (10.0-50.0); Mean Corpuscular Hemoglobin 34.4 pg (28.0-32.0); Mean Corpuscular Hgb Conc. 34.1 g/dL (32.0-36.0); Mean Corpuscular Volume 100.9 fL (80.0-100.0); Monocytes # (auto) 0.6 10 ^3/uL (0-1.3); Monocytes % (auto) 14.4 % (0.0-12.0); Neutrophils # (auto) 2.4 10 ^3/uL (1.6-8.6); Neutrophils % (auto) 58.9 % (37.0-80.0); Nucleated Red Blood Cells % 0.2 %; Platelet Count (auto) 142 10^3/uL (140-450); Red Blood Cells 3.91 10^6/uL (4.5-5.90); Red Cell Distribution Width 13.5 % (11.8-14.3); White Blood Cell 4.1 10^3/uL (4.4-10.8)
[2021-01-06 07:53] LABS: Albumin 3.2 g/dL (3.4-5.0); BUN/Creatinine Ratio 7.2; Calcium 9.4 mg/dL (8.5-10.1); Magnesium 1.9 mg/dL (1.6-2.6)
[2021-01-06 07:56] LABS: Bilirubin, Total 0.8 mg/dL (0.2-1.0)
[2021-01-06 08:00] VITALS: BP 123/88
[2021-01-06] MEDS: cefTRIAXone 1GM/50ML D5W 50 ML IV SCH (10:29)
[2021-01-06] MEDS: THIAMINE HCL 100 MG TAB PO SCH (10:30)
[2021-01-06] MEDS: levETIRAcetam 500 MG TAB PO SCH ×2 (10:30→21:31)
[2021-01-06] MEDS: ZINC SULFATE 220mg CAP or TAB PO SCH (10:30)
[2021-01-06] MEDS: FOLIC ACID 1 MG TAB PO SCH (10:30)
[2021-01-06] MEDS: FAMOTIDINE 20 MG TAB PO SCH ×2 (10:31→21:32)
[2021-01-06] MEDS: ENOXAPARIN SOD 40 MG/0.4 ML SYRINGE SC SCH (10:31)
[2021-01-06] MEDS: ASCORBIC ACID 500 MG TAB PO SCH ×2 (10:31→21:32)
[2021-01-06] MEDS: MULTIPLE VITAMIN TAB PO SCH (10:31)
[2021-01-06 22:00] VITALS: BP 135/97
[2021-01-07] MEDS: SOD CHL 0.45% 1,000 ML IV SCH ×2 (04:43→17:40)
[2021-01-07 05:00] VITALS: BP 130/92
[2021-01-07 07:18] LABS: Calcium 9.5 mg/dL (8.5-10.1); Potassium 3.8 mmol/L (3.5-5.1)
[2021-01-07 07:22] LABS: Albumin 3.5 g/dL (3.4-5.0); BUN/Creatinine Ratio 11.4
[2021-01-07 07:25] LABS: Bilirubin, Total 0.9 mg/dL (0.2-1.0); Total Protein 8.3 g/dL (6.4-8.2)
[2021-01-07 09:00] VITALS: BP 124/88
[2021-01-07] MEDS: FOLIC ACID 1 MG TAB PO SCH (09:35)
[2021-01-07] MEDS: cefTRIAXone 1GM/50ML D5W 50 ML IV SCH (09:35)
[2021-01-07] MEDS: FAMOTIDINE 20 MG TAB PO SCH (09:36)
[2021-01-07] MEDS: levETIRAcetam 500 MG TAB PO SCH (09:36)
[2021-01-07] MEDS: MULTIPLE VITAMIN TAB PO SCH (09:36)
[2021-01-07] MEDS: THIAMINE HCL 100 MG TAB PO SCH (09:36)
[2021-01-07] MEDS: ZINC SULFATE 220mg CAP or TAB PO SCH (09:36)
[2021-01-07] MEDS: ENOXAPARIN SOD 40 MG/0.4 ML SYRINGE SC SCH (09:37)
[2021-01-07] MEDS: ASCORBIC ACID 500 MG TAB PO SCH (09:37)
[2021-01-07 12:54] VITALS: BP 139/96
[2021-01-07 17:00] VITALS: BP 134/81
[2021-01-07 18:34] VITALS: BP 134/81
== END 2021-01-07 18:59 | disposition home or self-care (01) | DRG 775 ==
LOC: ER 14:22 → EDBD 14:22 → LDRP 14:23 → UNDOADMIN 14:23 → TELE 14:23 → TELE-EAST 01-05 12:38
PROVIDERS: ADMIT Nurse Practitioner Family; ATTEND Internal Medicine
DX: F10.129 Alcohol abuse with intoxication, unspecified (principal); F10.139 Alcohol abuse with withdrawal, unspecified; G40.409 Other generalized epilepsy and epileptic syndromes, not intractable, without status epilepticus; Z20.822 Contact with and (suspected) exposure to COVID-19; F17.200 Nicotine dependence, unspecified, uncomplicated; Z91.19 Patient's noncompliance with other medical treatment and regimen; Z79.899 Other long term (current) drug therapy; Y90.8 Blood alcohol level of 240 mg/100 ml or more; W18.39XA Other fall on same level, initial encounter; Y93.89 Activity, other specified; Y92.238 Other place in hospital as the place of occurrence of the external cause; Y99.8 Other external cause status; J84.9 Interstitial pulmonary disease, unspecified
CPT/HCPCS: 36415; 70450; 70551; 71045; 72125; 80053; 80320; 83605; 83735; 85025; 87040; 87426; 93017; 96365; 96367; 96372; 96375; G0378; J0696

== ENCOUNTER 2021-03-15 22:37 | Emergency (ER) | payer MEDICAID ==
[~2021-03-15] VITALS: Ht 167.6 cm; Wt 72.6 kg
[2021-03-15 22:40] VITALS: BP 126/82
[2021-03-16] MEDS ORDERED: KETOROLAC TROMETH 60MG/2ML VIAL IM ONE (04:00)
== END 2021-03-16 05:01 | disposition home or self-care (01) ==
LOC: ER 22:37 → EDBD 22:37 → ER 03-16 05:01
DX: R56.9 Unspecified convulsions (principal); R22.0 Localized swelling, mass and lump, head; M54.2 Cervicalgia; Z87.891 Personal history of nicotine dependence; W18.09XA Striking against other object with subsequent fall, initial encounter; Y93.89 Activity, other specified; Y92.89 Other specified places as the place of occurrence of the external cause; Y99.8 Other external cause status
CPT/HCPCS: 70450; 72125; 96372; 99285; J1885